=== PATIENT | male | born 1935 | race African-American/Black ===

== ENCOUNTER 2017-03-09 14:12 | Outpatient (CLI) | payer MEDICARE, BC ==
[2017-03-09 15:03] LABS: Hematocrit 40.4 % (42.0-52.0); Mean Platelet Volume 6.3 fL (7.4-10.4); Red Blood Cell (RBC) Count 4.33 mill/uL (4.70-6.10)
[2017-03-09 15:12] LABS: Prothrombin Time 13.3 SEC (12.0-14.7)
[2017-03-09 15:13] LABS: PTT 30.7 SEC (22.9-36.1)
--- NOTE | 2017-03-09 15:19 | RAD ---
TWO VIEW CHEST: History: Pre-operative evaluation. Comparison: 09-19-16 FINDINGS: Heart is mildly enlarged. Mild vascular engorgement appears stable from prior exam. No new infiltrate . A calcified nodule in the left lung base is stable. Osseous structures are unremarkable. IMPRESSION: Mild cardiomegaly. Stable chest findings. POS: [facility]
[2017-03-09 15:26] LABS: Anion Gap 8 mmol/L (10-20); BUN (Urea Nitrogen) 18 mg/dL (8.4-25.7); Calc. Creatinine Clearance 0 mL/min (70-130); Carbon Dioxide 29 mmol/L (23-31); Chloride 106 mmol/L (98-107); Estimated GFR-MDRD 84
== END 2017-03-09 14:13 | disposition home or self-care (01) ==
LOC: LABBT 14:12
PROVIDERS: ATTEND Urology
DX: Z01.818 Encounter for other preprocedural examination (principal); N47.1 Phimosis; N30.01 Acute cystitis with hematuria; R31.29 Other microscopic hematuria
CPT/HCPCS: 71020; 80048; 85027; 85610; 85730; 93005; 93010

== ENCOUNTER 2017-03-15 14:59 | Outpatient (CLI) | payer MEDICARE, BC ==
[~2017-03-15 14:59] MED LIST: Iopamidol 250 51% 100 ML VIAL FS ONE
--- NOTE | 2017-03-15 19:21 | CT ---
PRE AND POSTCONTRAST ENHANCED CT IMAGES ABDOMEN AND PELVIS 03/15/17 HISTORY: Microhematuria, difficulty urinating. Pre and postcontrast enhanced CT images of the abdomen and pelvis is obtained before and after admini stration of IV contrast. The lung bases are unremarkable. There does appear to be some areas of right pleural based calcification possibly due to previous pneumothorax. No other pulmonary parenchymal le prince seen. A small granuloma is seen in the left lower lobe. The liver and spleen demonstrate no obvious evidence of abnormalities. The gallbladder is contracted. Adrenal glands are unremarkable. Cortical cyst seen in the left kidney. No evidence of renal parench ymal calcifications or masses seen. No evidence of hydronephrosis seen. The ureters are decompressed. There does appear to be some moderate lateral wall thickening. Bladder pathology cannot be excluded. Incidentally noted sigmoid and descending colonic diverticulosis is also present. IMPRESSION: Some bladder wall thickening. Differential diagnosis includes cystitis versus malignancy. Correlate w ith direct visualization. There is also vacuum disc changes seen at the L5-S1 level. POS: OFF
== END 2017-03-15 15:00 | disposition home or self-care (01) ==
LOC: CT 14:59
PROVIDERS: ATTEND Urology
DX: R31.9 Hematuria, unspecified (principal)
CPT/HCPCS: 74178

== ENCOUNTER 2017-03-16 06:27 | Day surgery (SDC) | payer MEDICARE, BC ==
[2017-03-15 14:53] VITALS: BMI 32.1
[2017-03-16] MEDS ORDERED: Levofloxacin 500 mg/D5W 100 ml Premix Bag ONE (07:09)
[2017-03-16] MEDS ORDERED: CEFAZOLIN/Water 2 GM/20 ML SYRINGE ONE (07:09)
[2017-03-16] MEDS ORDERED: Bacitracin Zinc Ointment 30 gm TUBE ONE ×2 (09:11→12:38)
[2017-03-16] MEDS ORDERED: Iothalamate Meglumine 60% 50 ML VIAL FS ONE (09:11)
[2017-03-16] MEDS ORDERED: Bupivacaine 0.25% HCL 30 ML VIAL ONE (09:11)
[2017-03-16] MEDS ORDERED: Fentanyl 100 MCG/2 ML VIAL ONE (09:12)
[2017-03-16] MEDS ORDERED: Promethazine HCl 25 MG/ML VIAL ONE (09:12)
--- NOTE | 2017-03-16 11:37 | OP ---
DATE OF PROCEDURE: 03/16/2017 PREOPERATIVE DIAGNOSES: 1. An 81-year-old male with history of benign prostatic hyperplasia, with severe phimosis. 2. Recent urinary tract infection, serna sensitive Escherichia coli. POSTOPERATIVE DIAGNOSES: 1. An 81-year-old male with history of benign prostatic hyperplasia, with severe phimosis. 2. Recent urinary tract infection, pansensitive Escherichia coli. PROCEDURES: Flexible cystoscopy, bladder wash, circumcision. SURGEON: Leigh Oreilly D.O. ANESTHESIA: General. COMPLICATIONS: None apparent. DISPOSITION: To the recovery room in stable condition. SPECIMENS: 1. Bladder wash for urine cytology. 2. Foreskin for permanent specimen. EBL: Minimal. IV FLUIDS: Approximately 1 liter. Intraoperative findings: Moderate BPH bilobar. Bladder grossly unremarkable. Severe phimosis, with dense adherence of the lopez, glans INDICATIONS FOR THE PROCEDURE AND HISTORY: Mr. Dumas is an 81-year-old male with history of dementia, BPH, referred by Dr. Chavez urgently as he had dysuria , phimosis, unable to retract. The patient is not in urinary retention with no significant postvoid residual, known to have history of BPH on Flomax. Urinalysis culture demonstrated pansensitive E. coli which has been treated by primary care physician. On exam, he had a tight phimosis in which I am unable to retract the foreskin. He presents today for circumcision, flexible cystoscopy for history of microscopic hematuria. CT of the abdomen and pelvis was obtained which demonstrated incidental bladder wall thickening, per my review, prostate volume approximately 55 grams, left renal cyst. There is no gross evidence of intraluminal bladder mass, no evidence of hydronephrosis. The patient's family has been informed regarding CT findings, risks and complications of the procedure was reviewed with him in detail including, but not limited to; bleeding, pain, infection, chronic pain, penile curvature, meatal stenosis, injury to adjacent structures. All questions were answered to their satisfaction and he desired to proceed. DESCRIPTION OF THE PROCEDURE: After an informed consent is signed, the patient is taken to the operating room, placed in supine position with the genital and the abdomen area prepped and draped in the usual surgical sterile fashion. As previously noted, there is a tight phimosis with some thickening of the foreskin consistent with chronic inflammation. I was unable to retract the foreskin; therefore, we initially performed a dorsal slit. Care was taken to avoid inadvertently injuring the glans. A straight Deja clamp was placed dorsally and held pressure and this was opened with Metzenbaum scissors. This was opened to the level of the coronal sulcus. At the level of the coronal sulcus, there was densely adherent inflammatory reaction of his prepuce especially at the ventral side. We took the incision down to the level of the glans and we circumferentially incised the foreskin to the level of the coronal sulcus ventrally as well. At the ventral surface, the plane of the coronal sulcus was somewhat obliterated due to chronic inflammation. There were no obvious lesions concerning for occult malignancy. The ring of foreskin was then incised with electrocautery. Good hemostasis was obtained throughout the dartos fascia. Using 3-0 chromic and an interrupted stitch, we reapproximated the skin. Good hemostasis again was noted. At this time, we proceeded to perform a flexible cystoscopy. There was no evidence of urethral stricture. The prostatic urethra demonstrated bilobar hyperplasia moderately obstructing with no significant intravesical median lobe. The superior verumontanum length was approximately 4-5 cm. Upon entering the bladder, clear urine was noted. There were no suspicious lesions for malignancy, no extrinsic mass defects, no bladder calculi. No significant trabeculation was noted. The ureteral orifices approximately 1 cm from the bladder neck. Urine barbotage and cytology was obtained. The bladder was subsequently emptied and completed with 16 Italian [place], subsequently removed. Sterile pressure dressing is applied and he tolerated the procedure well. He is discharged with ciprofloxacin for 5 days, [place], [place] 5/325, #40. MTDD
[2017-03-16] MEDS ORDERED: Lidocaine 1% PF 5 ML VIAL ONE (15:22)
[2017-03-16] MEDS ORDERED: PHENYLEPHRINE-NS 100 MCG/ML 10 ML SYRINGE ONE (15:22)
[2017-03-16] MEDS ORDERED: Propofol 200 MG/20 ML VIAL ONE (15:22)
[2017-03-16] MEDS ORDERED: Ondansetron HCl/PF 4 MG/2 ML Vial ONE (15:22)
== END 2017-03-16 12:55 | disposition home or self-care (01) ==
LOC: SDC 06:27
PROVIDERS: ATTEND Urology
PROC: 0VTTXZZ Resection of Prepuce, External Approach (ICD-10-PCS; principal; 2017-03-16)
PROC: 0TJB8ZZ Inspection of Bladder, Via Natural or Artificial Opening Endoscopic (ICD-10-PCS; 2017-03-16)
DX: N47.1 Phimosis (principal); N30.01 Acute cystitis with hematuria; F03.90 Unspecified dementia, unspecified severity, without behavioral disturbance, psychotic disturbance, mood disturbance, and anxiety; E78.5 Hyperlipidemia, unspecified; N40.0 Benign prostatic hyperplasia without lower urinary tract symptoms; I86.8 Varicose veins of other specified sites; K21.9 Gastro-esophageal reflux disease without esophagitis; E66.9 Obesity, unspecified; Z68.32 Body mass index [BMI] 32.0-32.9, adult; Z79.2 Long term (current) use of antibiotics; Z86.718 Personal history of other venous thrombosis and embolism; Z79.899 Other long term (current) drug therapy
CPT/HCPCS: 88112; 88304; J1956; J2001; J2405; J2550; J2704; J3010; Q9961; S0020

== ENCOUNTER 2017-10-17 08:53 | Outpatient (CLI) | payer MEDICARE, BC ==
[2017-10-17] MEDS ORDERED: ISOVUE-370 76%-LOCM 1 ML ONE (13:01)
== END 2017-10-17 08:54 | disposition home or self-care (01) ==
LOC: BICCT 08:53
PROVIDERS: ATTEND Urology
DX: R31.29 Other microscopic hematuria (principal); N47.1 Phimosis; K76.89 Other specified diseases of liver; N28.1 Cyst of kidney, acquired; K57.30 Diverticulosis of large intestine without perforation or abscess without bleeding; K44.9 Diaphragmatic hernia without obstruction or gangrene; K80.20 Calculus of gallbladder without cholecystitis without obstruction; J98.4 Other disorders of lung; Z87.440 Personal history of urinary (tract) infections
CPT/HCPCS: 74178

== ENCOUNTER 2020-03-26 17:50 | Emergency (ER) | payer MEDICARE, BC ==
[2020-03-26 18:29] LABS: #Basophils 0.1 thou/uL (0.0-0.2); #Eosinphils 0.1 thou/uL (0.0-0.7); #Lymphocytes 0.9 thou/uL (1.20-3.40); #Monocytes 0.4 thou/uL (0.11-0.59); %Basophils 0.8 % (0.0-1.0); %Eosinophils 1.8 % (0.0-10.0); %Lymphocytes 12.2 % (21.0-51.0); %Monocytes 5.9 % (0.0-10.0); %Neutrophils 79.4 % (42.0-75.0); Hemoglobin 13.1 g/dL (14.0-18.0); Mean Corpuscular HGB CONC 33.1 g/dL (32.0-36.0); Mean Corpuscular Hemoglobin 31.2 pg (27.0-31.0); Mean Corpuscular Volume 94.3 fL (78.0-98.0); Mean Platelet Volume 6.8 fL (7.4-10.4); Platelet Count 255 thou/uL (130-400); RBC Distribution Width 12.4 % (11.5-14.5); Red Blood Cell (RBC) Count 4.19 mill/uL (4.70-6.10); White Blood Cell (WBC) Count 7.5 thou/uL (4.8-10.8)
[2020-03-26 18:49] LABS: ALT (SGPT) 7 U/L (8-55); AST (SGOT) 11 U/L (5-34); Albumin 3.9 g/dL (3.4-4.8); Alkaline Phosphatase 101 U/L (40-110); Anion Gap 15 mmol/L (10-20); BUN (Urea Nitrogen) 17 mg/dL (8.4-25.7); Bilirubin, Total 0.4 mg/dL (0.2-1.2); Calc. Creatinine Clearance 0 mL/min (70-130); Calcium 8.7 mg/dL (7.8-10.44); Carbon Dioxide 26 mmol/L (23-31); Chloride 107 mmol/L (98-107); Globulin 3.7 g/dL (2.4-3.5); Glucose 115 mg/dL (83-110); Potassium 4.3 mmol/L (3.5-5.1); Protein, Total 7.6 g/dL (5.8-8.1); Sodium 144 mmol/L (136-145)
[2020-03-26 19:39] LABS: Bilirubin Negative (Negative); Blood, Urine Negative (Negative); Clarity Clear (Clear); Glucose, Urine (Dipstick) Normal (Negative); Ketone, Urine Negative (Negative); Leukocyte Negative Leu/uL (Negative); Nitrite Negative (Negative); Protein, Urine (Dipstick) 20 mg/dL (Neg-Trace); pH, Urine 5.5 (5.0-9.0)
--- NOTE | 2020-03-26 20:01 | RAD ---
CHEST ONE VIEW: 03/26/20 INDICATIONS: Hypotension. COMPARISON: Prior exam dated 12/20/14 and 03/09/17 and 04/16/17. FINDINGS: There are opacities involving both lower lobes possibly related to subsegmental volume loss. Pneumoni a is not entirely excluded. There are low lung volumes and accentuated cardiac silhouette. Mild cardi omegaly is felt to be present. There is mild suspected pulmonary vascular congestion. There are tiny bilateral pleural effusions suspected. No pneumothorax is evident. No acute osseous abnormality is ev ident. IMPRESSION: Mild cardiomegaly with mild suspected pulmonary vascular congestion and small bilateral pleural effus ions may reflect mild CHF. Linear and hazy opacities involving both lower lobes may reflect subsegmental volume loss due to hypo ventilation. If clinically indicated, repeat two view of the chest may be helpful for further evaluat ion. POS: [facility]
--- NOTE | 2020-03-29 16:28 | EKG ---
Test Reason : Blood Pressure : / mmHG Vent. Rate : 085 BPM Atrial Rate : 085 BPM P-R Int : 162 ms QRS Dur : 092 ms QT Int : 396 ms P-R-T Axes : 023 -26 -09 degrees QTc Int : 471 ms Normal sinus rhythm Minimal voltage criteria for LVH, may be normal variant Septal infarct , age undetermined Abnormal ECG Confirmed by ROSHAN Eagle, YEHUDA ([id number]), editor greeting card JOANA MCCOLLUM ([id number]) on 03/29/2020 4:28:28 PM Referred By: Confirmed By:YEHUDA ISLAS M.D.
== END 2020-03-26 22:28 | disposition home or self-care (01) ==
LOC: ERS 17:50
DX: E86.0 Dehydration (principal); I10 Essential (primary) hypertension; Z86.718 Personal history of other venous thrombosis and embolism; Z79.899 Other long term (current) drug therapy
CPT/HCPCS: 36415; 51701; 71045; 80053; 81003; 83880; 84484; 85025; 93005

== ENCOUNTER 2020-05-05 15:47 | Inpatient (IN) | payer MEDICARE, BC ==
[~2020-05-05 15:47] MED LIST changes: -Iopamidol 250 51% 100 ML VIAL FS ONE; +Iopamidol-370 76% 500 ML 1 ML ONE
--- NOTE | 2020-05-05 16:39 | RAD ---
Exam: Chest one view HISTORY:Altered mental status. Patient stopped eating 2 days ago Comparison: 03/26/2020 FINDINGS: Cardiac silhouette:Cardiomegaly Aorta: Unremarkable Pulmonary vessels: Normal Costophrenic angles: Clear LUNGS: Extensive interstitial and alveolar opacities Pneumothorax: None Osseous abnormalities: None Findings: There appears to be gastric distention. Consider abdomen radiograph. IMPRESSION: 1. Congestive heart failure. Correlate for superimposed pneumonia 2. Gastric distention. Consider abdomen radiograph. Results study discussed with Dr. Navarro 05/05/2020 at 4:36 PM Code CR
[2020-05-05] MEDS ORDERED: Vancomycin 1 GM/200 ML BAG ONE (16:50)
[2020-05-05] MEDS ORDERED: cefTRIAXone\\ROCEPHIN 2 GM VIAL ONE (16:50)
[2020-05-05 17:24] LABS: #Eosinphils 0.1 thou/uL (0.0-0.7); #Lymphocytes 0.5 thou/uL (1.20-3.40); #Monocytes 0.5 thou/uL (0.11-0.59); #Neutrophils 4.7 thou/uL (1.40-6.50); %Basophils 0.5 % (0.0-1.0); %Eosinophils 1.1 % (0.0-10.0); %Lymphocytes 7.9 % (21.0-51.0); %Monocytes 9.1 % (0.0-10.0); %Neutrophils 81.5 % (42.0-75.0); Hemoglobin 12.8 g/dL (14.0-18.0); Mean Corpuscular HGB CONC 34.8 g/dL (32.0-36.0); Mean Corpuscular Hemoglobin 31.2 pg (27.0-31.0); Mean Corpuscular Volume 89.7 fL (78.0-98.0); Mean Platelet Volume 7.6 fL (7.4-10.4); Platelet Count 182 thou/uL (130-400); RBC Distribution Width 12.3 % (11.5-14.5); Red Blood Cell (RBC) Count 4.11 mill/uL (4.70-6.10); White Blood Cell (WBC) Count 5.8 thou/uL (4.8-10.8)
[2020-05-05 17:41] LABS: SARS-CoV-2 NAA Rapid Test DETECTED (NotDetected)
--- NOTE | 2020-05-05 17:50 | RAD ---
Exam: 2 views abdomen HISTORY: Prominent air-filled loops of bowel noted on chest radiograph Comparison none FINDINGS: Supine and left lateral decubitus view of the abdomen are submitted for interpretation There are multiple loops of prominent air-filled:. There is a significant amount of fecal material in the right hemicolon. There do appear to be decompressed air-filled loops of small bowel, scattered throughout the abdomen. No obvious pneumoperitoneum on the left T wrist radiograph. Small triangular focus of air underneath the hepatic silhouette is noted. Significance is uncertain. Better interrogation with an abdomen pelvis CT utilizing IV and possible oral contrast is recommended. IMPRESSION: Prominent air-filled loops of colon. Scattered fecal material. Questionable nonspecific f ocus of air in the right upper quadrant, only appreciated on the left decubitus radiograph. Additional imaging with CT is recommended.
[2020-05-05] MEDS ORDERED: Dexamethasone 10 MG/ML VIAL ONE (17:57)
[2020-05-05 17:58] LABS: ALT (SGPT) 18 U/L (8-55); AST (SGOT) 40 U/L (5-34); Albumin 3.2 g/dL (3.4-4.8); Alkaline Phosphatase 93 U/L (40-110); Anion Gap 17 mmol/L (10-20); BUN (Urea Nitrogen) 24 mg/dL (8.4-25.7); Bilirubin, Total 0.6 mg/dL (0.2-1.2); Calc. Creatinine Clearance 0 mL/min (70-130); Calcium 7.9 mg/dL (7.8-10.44); Carbon Dioxide 21 mmol/L (23-31); Chloride 106 mmol/L (98-107); Globulin 3.6 g/dL (2.4-3.5); Glucose 108 mg/dL (83-110); Protein, Total 6.8 g/dL (5.8-8.1); Sodium 141 mmol/L (136-145)
[2020-05-05 18:07] LABS: Potassium 2.7 mmol/L (3.5-5.1)
[2020-05-05 18:34] LABS: Bacteria/HPF None Seen HPF (None Seen); Bilirubin Negative (Negative); Blood, Urine Negative (Negative); Clarity Clear (Clear); Glucose, Urine (Dipstick) Normal (Negative); Ketone, Urine Negative (Negative); Leukocyte Negative Leu/uL (Negative); Nitrite Negative (Negative); Protein, Urine (Dipstick) 50 mg/dL (Neg-Trace); RBC/HPF None Seen HPF (0-3); Specific Gravity, Urine 1.019 (1.002-1.036); Squamous Epithelial 0-3 HPF (0-3); WBC/HPF 0-3 HPF (0-3); pH, Urine 5.5 (5.0-9.0)
[2020-05-05] MEDS ORDERED: Potassium Chloride 40 MEQ in Sodium Chloride 0.9% 500 ML IVPB ONE (18:45)
--- NOTE | 2020-05-05 18:49 | CT ---
CT HEAD WITHOUT CONTRAST: Indications: Mental status change. Comparison: 04-16-2017 FINDINGS: Mild to moderate cortical atrophy. Moderately severe chronic ischemic white matter changes, similar t o the prior exam. No evidence of mass or hemorrhage. No evidence of acute cortical infarct. No acute interval change identified. Paranasal sinuses and mastoids are clear. IMPRESSION: Chronic changes as described. No acute process identified. POS: [facility]
--- NOTE | 2020-05-05 20:23 | CT ---
CT ABDOMEN AND PELVIS WITH IV CONTRAST: Indications: Abdominal distension. Comparison: 10-17-17 FINDINGS: Images through the lung bases show diffuse ground glass opacities in the visualized lower lobes. Covi d pneumonia should be excluded. Two small nodules in the right middle lobe have been previously described and are stable. Hepatic cystic lesions are stable. Spleen and pancreas unremarkable. Renal cystic lesions are stable. No hydronephrosis. Small bowel loops normal caliber. Moderate volume stool throughout the colon. Aor ta normal caliber with calcification. Urinary bladder shows mild urinary bladder wall thickening. Mild prostatic hypertrophy. Osseous struc tures unremarkable with degenerative spine changes. IMPRESSION: 1. Images through the lung bases show diffuse bilateral ground glass infiltrates in the visualiz ed lower lobes. Rule out Covid pneumonia. 2. No acute intraabdominal process. Moderate to large volume stool in the colon. Other findings as described above appear stable. POS: [facility]
[2020-05-05] MEDS ORDERED: Ondansetron PF 4 MG/2 ML Vial IVP PRN (23:00)
[2020-05-05] MEDS ORDERED: Sodium Chloride 0.9% 1,000 ML IV SCH (23:00)
[2020-05-05] MEDS ORDERED: Acetaminophen 325 MG TAB PO PRN (23:00)
[2020-05-05] MEDS ORDERED: Ondansetron ODT 4 MG TAB SL PRN (23:00)
[2020-05-06] MEDS ORDERED: Ondansetron ODT 4 MG TAB PO PRN (08:13)
[2020-05-06] MEDS ORDERED: Acetaminophen 325 MG TAB PO PRN (08:13)
[2020-05-06] MEDS ORDERED: REMDESIVIR (EUA) 200 MG in Sodium Chloride 0.9% 250 ML 210 ML IV SCH ×2 (08:30→11:00)
[2020-05-06] MEDS: Ascorbic Acid 500 mg Chewable Tablet PO SCH ×2 (08:45→10:21)
[2020-05-06] MEDS: Tamsulosin HCl 0.4 MG CAP PO SCH ×2 (08:45→10:21)
[2020-05-06] MEDS: Zinc Sulfate 220 MG CAP PO SCH ×2 (08:45→10:21)
[2020-05-06] MEDS: Enoxaparin Sodium 40 MG/0.4 ML SYRINGE SC SCH (08:45)
[2020-05-06] MEDS: Dexamethasone 6 MG in Sodium Chloride 0.9% 50 ML IVPB SCH (09:17)
--- NOTE | 2020-05-06 09:18 | HP ---
PRIMARY CARE PROVIDER: Charles Chavez MD HISTORY OF PRESENT ILLNESS: The patient referred to the Hospitalist Service from [facility]. The patient had had a cough for two or three days, presented to the emergency room with less responsive. EMS said his temperature was 95.1. Sat was 92 on arrival. No history obtainable other than that. REVIEW OF SYSTEMS: The patient is unable to give any history. He is demented and answers no question appropriately. I have spoken with the daughter, Josep Dumas, who relates that he was really doing well two days ago. PAST MEDICAL HISTORY: Pertinent for Alzheimer's dementia and benign prostatic hypertrophy. CURRENT MEDICATIONS: 1. Donepezil 10 mg a day. 2. Namenda 10 mg twice a day. 3. Flomax 0.4 mg a day. ALLERGIES: NO KNOWN MEDICAL ALLERGIES. FAMILY HISTORY: Unobtainable at the present time. SOCIAL HISTORY: Apparently lives with family. No tobacco. No alcohol. Spoke with Josep Dumas. He is a full code, full resuscitation. As mentioned before, review of systems is totally unobtainable from the patient. PHYSICAL EXAMINATION: GENERAL: He is arousable, mumbles. No specific response. VITAL SIGNS: He is on high-flow O2 with 94% to 95% sat. Blood pressure 147/62, pulse 76, and temperature 98.1. HEAD, EYES, EARS, NOSE, AND THROAT: Revealed pupils equal. Sclerae white. Tympanic membranes are clear. Nose is clear. Oral mucous membranes are dry. NECK: No jugular venous distention, adenopathy, or thyromegaly. CHEST: Clear to percussion. Fine rales in all lung rubio. HEART: Had a regular rate and rhythm. First and second heart sounds are clear. There are no appreciated murmurs or gallops. ABDOMEN: Soft. Bowel sounds are normal. There is no hepatosplenomegaly. No mass. No rebound. EXTREMITIES: Reveal no cyanosis, clubbing, or edema. PULSES: Carotid, radial, femoral, and dorsalis pedis pulses intact. SKIN: Warm and dry without bruises or rash. HEME/LYMPH: No tender or swollen lymph nodes in axilla, inguinal, cervical area. NEUROLOGICAL: Cranial nerves 2 through 12 grossly intact. Moves all extremities. IMAGING STUDIES: Chest x-ray, bilateral infiltrates consistent with COVID-19, reviewed by me. LABORATORY DATA: Sodium 141, potassium 2.7, chloride 106, CO2 of 21, BUN 24, creatinine 1.00, lactic acid 1.4, bilirubin 0.6. BNP 32. Serology, COVID-19 positive. Hematology; white count 5.8, hemoglobin 12.8, platelet count 182,000 with high neutrophils, low lymphocytes consistent with COVID. Inflammatory markers have not been drawn. EKG; rate 70, atrial fibrillation, LVH, marked artifact. We will review. ADMITTING DIAGNOSES: 1. COVID pneumonia. 2. Acute respiratory failure with hypoxemia. 3. Alzheimer's dementia. 4. Hypokalemia. 5. Atrial fibrillation. I have spoken with the family. He will be full code. He will be started on Decadron, continued on high-flow O2. Remdesivir will be started. Vitamin C and zinc will be added. Job ID: [id number]
[2020-05-06] MEDS: Donepezil HCl 10 MG TAB PO SCH (20:34)
[2020-05-06] MEDS ORDERED: Donepezil HCl 10 MG TAB PO SCH (21:00)
[2020-05-07 06:19] LABS: #Basophils 0.1 thou/uL (0.0-0.2); #Lymphocytes 0.4 thou/uL (1.20-3.40); #Monocytes 0.7 thou/uL (0.11-0.59); #Neutrophils 9.4 thou/uL (1.40-6.50); %Basophils 1.3 % (0.0-1.0); %Eosinophils 0.3 % (0.0-10.0); %Lymphocytes 4.1 % (21.0-51.0); %Monocytes 6.1 % (0.0-10.0); %Neutrophils 88.2 % (42.0-75.0); Hemoglobin 13.6 g/dL (14.0-18.0); Mean Corpuscular HGB CONC 34.5 g/dL (32.0-36.0); Mean Corpuscular Hemoglobin 31.5 pg (27.0-31.0); Mean Corpuscular Volume 91.4 fL (78.0-98.0); Mean Platelet Volume 7.5 fL (7.4-10.4); Platelet Count 175 thou/uL (130-400); RBC Distribution Width 12.5 % (11.5-14.5); Red Blood Cell (RBC) Count 4.32 mill/uL (4.70-6.10); White Blood Cell (WBC) Count 10.7 thou/uL (4.8-10.8)
[2020-05-07 06:41] LABS: Anion Gap 16 mmol/L (10-20); BUN (Urea Nitrogen) 17 mg/dL (8.4-25.7); Calc. Creatinine Clearance 95 mL/min (70-130); Calcium 7.9 mg/dL (7.8-10.44); Carbon Dioxide 22 mmol/L (23-31); Chloride 114 mmol/L (98-107); Glucose 118 mg/dL (83-110); Sodium 149 mmol/L (136-145)
[2020-05-07 06:51] LABS: Potassium 2.8 mmol/L (3.5-5.1)
[2020-05-07] MEDS: Ascorbic Acid 500 mg Chewable Tablet PO SCH ×2 (08:44→12:59)
[2020-05-07] MEDS: Zinc Sulfate 220 MG CAP PO SCH ×2 (08:44→12:59)
[2020-05-07] MEDS: Tamsulosin HCl 0.4 MG CAP PO SCH ×2 (08:44→12:59)
[2020-05-07] MEDS: Enoxaparin Sodium 40 MG/0.4 ML SYRINGE SC SCH (08:45)
[2020-05-07] MEDS: Dexamethasone 6 MG in Sodium Chloride 0.9% 50 ML IVPB SCH (10:00)
[2020-05-07] MEDS ORDERED: REMDESIVIR (EUA) 100 MG in Sodium Chloride 0.9% 250 ML 230 ML IV SCH (12:00)
--- NOTE | 2020-05-07 12:16 | PDOC.HOSPP ---
- Subjective Encounter Date: 05/07/20 Encounter Time: 12:15 Subjective: confused - Objective Vital Signs & Weight: Vital Signs (12 hours) Temp Pulse Resp BP BP Pulse Ox 05/07/20 11:34 62 20 165/90 H 86 L 05/07/20 07:56 97.3 F L 63 20 148/77 H 85 L 05/07/20 04:00 98.2 F 66 20 157/87 H 90 L Weight Admit Weight 224 lb 1.92 oz Weight 224 lb 2 oz I&O: 05/06/20 05/07/20 05/08/20 06:59 06:59 06:59 Intake Total 800 450 Balance 800 450 Result Diagrams: 05/07/20 06:00 05/07/20 06:00 Hospitalist ROS - Medication Medications: Active Medications Generic Name Dose Route Start Last Admin Trade Name Freq PRN Reason Stop Dose Admin Ascorbic Acid 1,000 mg 05/06/20 09:00 05/07/20 08:44 Ascorbic Acid 500 Mg Chewable Tablet PO 1,000 mg DAILY DONNA Administration Donepezil HCl 10 mg 05/06/20 21:00 05/06/20 20:34 Donepezil Hcl 10 Mg Tab PO 10 mg HS DONNA Administration Enoxaparin Sodium 40 mg 05/06/20 09:00 05/07/20 08:45 Enoxaparin Sodium 40 Mg/0.4 Ml Syringe SC 40 mg 0900 DONNA Administration Dexamethasone 6 mg/ Sodium 50.6 mls @ 100 mls/hr 05/06/20 09:00 05/06/20 09:17 Chloride IVPB 50.6 mls DAILY DONNA Administration Memantine 10 mg 05/06/20 09:00 05/07/20 08:45 Memantine Hcl 10 Mg Tab PO 10 mg BID DONNA Administration Pantoprazole Sodium 40 mg 05/06/20 09:00 05/07/20 08:44 Pantoprazole 40 Mg Tab PO 40 mg DAILY DONNA Administration Sodium Chloride 10 ml 05/06/20 09:00 05/07/20 08:45 Flush - Normal Saline 10 Ml Syringe IVF 10 ml Q12HR DONNA Administration Tamsulosin HCl 0.4 mg 05/06/20 09:00 05/07/20 08:44 Tamsulosin Hcl 0.4 Mg Cap PO 0.4 mg DAILY DONNA Administration Zinc Sulfate 220 mg 05/06/20 09:00 05/07/20 08:44 Zinc Sulfate 220 Mg Cap PO 220 mg DAILY DONNA Administration Hospitalist Exam Vitals: Vital Signs (12 hours) Temp Pulse Resp BP BP Pulse Ox 05/07/20 11:34 62 20 165/90 H 86 L 05/07/20 07:56 97.3 F L 63 20 148/77 H 85 L 05/07/20 04:00 98.2 F 66 20 157/87 H 90 L Weight Admit Weight 224 lb 1.92 oz Weight 224 lb 2 oz Neck: no JVD Heart: RRR, no murmur Respiratory - other findings: post rales, rhonchi Gastrointestinal: soft, normal bowel sounds Extremities: no edema Hosp A/P (1) Pneumonia due to COVID-19 virus Code(s): U07.1 - COVID-19; J12.82 - PNEUMONIA DUE TO CORONAVIRUS DISEASE 2019 Status: Acute (2) Acute respiratory failure with hypoxemia Code(s): J96.01 - ACUTE RESPIRATORY FAILURE WITH HYPOXIA Status: Acute (3) Alzheimer disease Code(s): G30.9 - ALZHEIMER'S DISEASE, UNSPECIFIED; F02.80 - DEMENTIA IN OTH DISEASES CLASSD ELSWHR W/O BEHAVRL DISTURB Status: Chronic - Plan requiring 6 Li per NC O2 cont iv steroids cont iv remdesivir inflammatory markrs very high, therapeutic dose lovenox
[2020-05-07] MEDS: REMDESIVIR (EUA) 100 MG in Sodium Chloride 0.9% 250 ML 230 ML IV SCH (13:16)
[2020-05-07] MEDS ORDERED: Potassium Phosphate 30 MMOL in Sodium Chloride 0.9% 500 ML IVPB SCH (15:30)
[2020-05-07] MEDS: Donepezil HCl 10 MG TAB PO SCH (19:55)
[2020-05-07] MEDS: Enoxaparin Sodium 100 MG/ML SYRINGE SC SCH (19:55)
--- NOTE | 2020-05-08 09:52 | PDOC.HOSPP ---
- Subjective Encounter Date: 05/08/20 Encounter Time: 09:51 Subjective: no appropriate responce - Objective Vital Signs & Weight: Vital Signs (12 hours) Temp Pulse Resp BP BP Pulse Ox 05/08/20 08:10 97.5 F L 70 20 165/116 H 90 L 05/08/20 04:00 97.6 F 84 20 184/97 H 94 L 05/07/20 23:28 97.5 F L 72 20 181/98 H 94 L Weight Admit Weight 224 lb 1.92 oz Weight 224 lb 2 oz I&O: 05/07/20 05/08/20 05/09/20 06:59 06:59 06:59 Intake Total 450 1200 Balance 450 1200 Result Diagrams: 05/07/20 06:00 05/07/20 06:00 Hospitalist ROS - Medication Medications: Active Medications Generic Name Dose Route Start Last Admin Trade Name Freq PRN Reason Stop Dose Admin Ascorbic Acid 1,000 mg 05/06/20 09:00 05/07/20 12:59 Ascorbic Acid 500 Mg Chewable Tablet PO Not Given DAILY DONNA Donepezil HCl 10 mg 05/06/20 21:00 05/07/20 19:55 Donepezil Hcl 10 Mg Tab PO Not Given HS DONNA Enoxaparin Sodium 100 mg 05/07/20 21:00 05/07/20 19:55 Enoxaparin Sodium 100 Mg/Ml Syringe SC 100 mg 0900,2100 DONNA Administration Dexamethasone 6 mg/ Sodium 50.6 mls @ 100 mls/hr 05/06/20 09:00 05/07/20 10:00 Chloride IVPB 50.6 mls DAILY DONNA Administration Remdesivir 100 mg/ Sodium 250 mls @ 250 mls/hr 05/07/20 11:00 05/07/20 13:16 Chloride IV 05/10/20 11:59 250 mls 1100 DONNA Administration Memantine 10 mg 05/06/20 09:00 05/07/20 19:55 Memantine Hcl 10 Mg Tab PO Not Given BID DONNA Pantoprazole Sodium 40 mg 05/06/20 09:00 05/07/20 12:59 Pantoprazole 40 Mg Tab PO Not Given DAILY DONNA Sodium Chloride 10 ml 05/06/20 09:00 05/07/20 19:55 Flush - Normal Saline 10 Ml Syringe IVF 10 ml Q12HR DONNA Administration Tamsulosin HCl 0.4 mg 05/06/20 09:00 05/07/20 12:59 Tamsulosin Hcl 0.4 Mg Cap PO Not Given DAILY DONNA Zinc Sulfate 220 mg 05/06/20 09:00 05/07/20 12:59 Zinc Sulfate 220 Mg Cap PO Not Given DAILY [facility] Hospitalist Exam Vitals: Vital Signs (12 hours) Temp Pulse Resp BP BP Pulse Ox 05/08/20 08:10 97.5 F L 70 20 165/116 H 90 L 05/08/20 04:00 97.6 F 84 20 184/97 H 94 L 05/07/20 23:28 97.5 F L 72 20 181/98 H 94 L Weight Admit Weight 224 lb 1.92 oz Weight 224 lb 2 oz Neck: no JVD Heart: RRR, no murmur Respiratory - other findings: fine rales diffusely Gastrointestinal: soft, non-distended, normal bowel sounds Extremities: no edema Hosp A/P (1) Pneumonia due to COVID-19 virus Code(s): U07.1 - COVID-19; J12.82 - PNEUMONIA DUE TO CORONAVIRUS DISEASE 2019 Status: Acute (2) Acute respiratory failure with hypoxemia Code(s): J96.01 - ACUTE RESPIRATORY FAILURE WITH HYPOXIA Status: Acute (3) Alzheimer disease Code(s): G30.9 - ALZHEIMER'S DISEASE, UNSPECIFIED; F02.80 - DEMENTIA IN OTH DISEASES CLASSD ELSWHR W/O BEHAVRL DISTURB Status: Chronic - Plan requiring 6 Li per NC O2 cont iv steroids cont iv remdesivir NGT for didi/nutrition CXR, D-dimer, CRP, BMP
[2020-05-08] MEDS: Dexamethasone 6 MG in Sodium Chloride 0.9% 50 ML IVPB SCH (10:58)
[2020-05-08] MEDS: Ascorbic Acid 500 mg Chewable Tablet PO SCH (10:58)
[2020-05-08] MEDS: Tamsulosin HCl 0.4 MG CAP PO SCH (11:01)
[2020-05-08] MEDS: Zinc Sulfate 220 MG CAP PO SCH (11:02)
[2020-05-08] MEDS: REMDESIVIR (EUA) 100 MG in Sodium Chloride 0.9% 250 ML 230 ML IV SCH ×2 (11:02→11:45)
[2020-05-08 11:39] LABS: Anion Gap 16 mmol/L (10-20); BUN (Urea Nitrogen) 20 mg/dL (8.4-25.7); Calc. Creatinine Clearance 83 mL/min (70-130); Carbon Dioxide 21 mmol/L (23-31); Chloride 117 mmol/L (98-107); Glucose 90 mg/dL (83-110); Potassium 3.4 mmol/L (3.5-5.1); Sodium 151 mmol/L (136-145)
[2020-05-08] MEDS: Enalaprilat Dihydrate 1.25 MG/ML VIAL SLOW IVP SCH ×2 (13:00→19:00)
[2020-05-08] MEDS: Enoxaparin Sodium 100 MG/ML SYRINGE SC SCH ×2 (13:47→20:45)
--- NOTE | 2020-05-08 15:53 | PDOC.BPN ---
- Brief Progress Note Encounter Date: 05/08/20 Encounter Time: 15:52 started iv vasotec for HTN
[2020-05-08] MEDS ORDERED: D5 1/4 NS w/20 mEq KCL 1,000 ML IV SCH (16:15)
--- NOTE | 2020-05-08 16:16 | PDOC.BPN ---
- Brief Progress Note Encounter Date: 05/08/20 Encounter Time: 16:11 issues 1. covid PNA on high flow O2, remdesivir, decadron, 2. HTN- started iv vasotec , 3. hypernatremia- started D5 1/4 NS + KCL. 4. needs nutrition- NGT no go due to high flow, OGT?
[2020-05-08] MEDS: Donepezil HCl 10 MG TAB PO SCH (20:45)
[2020-05-09] MEDS: Enalaprilat Dihydrate 1.25 MG/ML VIAL SLOW IVP SCH ×4 (00:28→17:02)
[2020-05-09 07:52] LABS: Eosinophils 1 % (0-10); Hemoglobin 15.1 g/dL (14.0-18.0); Lymphocytes 2 % (21-51); MDiff Complete? YES; Mean Corpuscular HGB CONC 34.2 g/dL (32.0-36.0); Mean Corpuscular Hemoglobin 31.7 pg (27.0-31.0); Mean Corpuscular Volume 92.8 fL (78.0-98.0); Mean Platelet Volume 9.3 fL (7.4-10.4); Monocytes 3 % (0-10); Neutrophil 94 % (42-75); Platelet Count 133 thou/uL (130-400); Platelet Morphology Comment Appears Adequate; RBC Distribution Width 13.9 % (11.5-14.5); Red Blood Cell (RBC) Count 4.75 mill/uL (4.70-6.10); White Blood Cell (WBC) Count 8.4 thou/uL (4.8-10.8)
[2020-05-09 10:15] LABS: Albumin 2.6 g/dL (3.4-4.8)
[2020-05-09 10:16] LABS: Chloride 117 mmol/L (98-107); Potassium 3.7 mmol/L (3.5-5.1); Sodium 146 mmol/L (136-145)
[2020-05-09 10:17] LABS: Calcium 7.8 mg/dL (7.8-10.44)
[2020-05-09 10:18] LABS: Glucose 186 mg/dL (83-110)
[2020-05-09 10:19] LABS: Anion Gap 14 mmol/L (10-20); Bilirubin, Total 0.9 mg/dL (0.2-1.2); Carbon Dioxide 19 mmol/L (23-31)
[2020-05-09 10:21] LABS: Alkaline Phosphatase 128 U/L (40-110); Calc. Creatinine Clearance 90 mL/min (70-130)
[2020-05-09 10:22] LABS: BUN (Urea Nitrogen) 21 mg/dL (8.4-25.7)
[2020-05-09 10:23] LABS: AST (SGOT) 55 U/L (5-34); Bilirubin, Direct 0.3 mg/dL (0.1-0.3)
[2020-05-09 10:24] LABS: ALT (SGPT) 25 U/L (8-55)
[2020-05-09] MEDS: Ascorbic Acid 500 mg Chewable Tablet PO SCH (10:30)
[2020-05-09] MEDS: Dexamethasone 6 MG in Sodium Chloride 0.9% 50 ML IVPB SCH (10:30)
[2020-05-09] MEDS: Tamsulosin HCl 0.4 MG CAP PO SCH (10:32)
[2020-05-09] MEDS: Enoxaparin Sodium 100 MG/ML SYRINGE SC SCH ×2 (10:32→19:48)
[2020-05-09] MEDS: Zinc Sulfate 220 MG CAP PO SCH (10:32)
[2020-05-09] MEDS: REMDESIVIR (EUA) 100 MG in Sodium Chloride 0.9% 250 ML 230 ML IV SCH (12:40)
--- NOTE | 2020-05-09 15:58 | SPC ---
Exam: Leftupper extremity ultrasound guided PICC line HISTORY: TPN, IV antibiotics Exposure:0.7 minutes, 6004 mGy/sq cm FINDINGS: Lumen: Duallumen Trim length: 55 cm Distal tip:Right atrium Catheter flushes and aspirates without difficulty TECHNIQUE: Consent obtained to perform a left upper extremity PICC line with ultrasound guidance. Le ftarm was prepped and draped in a sterile fashion. 1% lidocaine, buffered with sodium bicarbonate was used for local anesthesia. Under ultrasound guidance, micropuncture needle was used to cannulate thebrachialvein. A 0.018 guidewire was advanced through the needle to level of the superior vena cava. Under fluoroscopy, the wire was further advanced into the inferior vena cava to document venous access. Wire was subsequently pulled back to theright atrium. Dual lumen flushes and aspirates without difficulty. Patient tolerated the procedure well. No immediate or postprocedure complications IMPRESSION: Successfulleftupper surgery PICC line placement with ultrasound guidance
--- NOTE | 2020-05-09 16:42 | PDOC.HOSPP ---
- Subjective Encounter Date: 05/09/20 Encounter Time: 09:30 - Objective Vital Signs & Weight: Vital Signs (12 hours) Temp Pulse Resp BP BP Pulse Ox 05/09/20 16:34 90 L 05/09/20 12:00 97.5 F L 86 20 158/92 H 91 L 05/09/20 08:00 97.5 F L 83 20 156/91 H 90 L 05/09/20 07:40 92 L Weight Admit Weight 224 lb 1.92 oz Weight 224 lb 2 oz I&O: 05/08/20 05/09/20 05/10/20 06:59 06:59 06:59 Intake Total 1200 Balance 1200 Result Diagrams: 05/09/20 05:46 05/09/20 09:52 Hospitalist ROS - Review of Systems Cardiovascular: denies: chest pain, palpitations, orthopnea, paroxysmal noc. dyspnea, edema, light headedness Gastrointestinal: denies: nausea, vomiting, abdominal pain, diarrhea, constipation, melena, hematochezia - Medication Medications: Active Medications Generic Name Dose Route Start Last Admin Trade Name Mateoq PRN Reason Stop Dose Admin Ascorbic Acid 1,000 mg 05/06/20 09:00 05/09/20 10:30 Ascorbic Acid 500 Mg Chewable Tablet PO Not Given DAILY DONNA Donepezil HCl 10 mg 05/06/20 21:00 05/08/20 20:45 Donepezil Hcl 10 Mg Tab PO Not Given HS DONNA Enalaprilat 1.25 mg 05/08/20 12:00 05/09/20 12:40 Enalaprilat Dihydrate 1.25 Mg/Ml Vial SLOW IVP 1.25 mg Q6HR DONNA Administration Enoxaparin Sodium 100 mg 05/07/20 21:00 05/09/20 10:32 Enoxaparin Sodium 100 Mg/Ml Syringe SC 100 mg 0900,2100 DONNA Administration Dexamethasone 6 mg/ Sodium 50.6 mls @ 100 mls/hr 05/06/20 09:00 05/09/20 10:30 Chloride IVPB Not Given DAILY DONNA Remdesivir 100 mg/ Sodium 250 mls @ 250 mls/hr 05/07/20 11:00 05/09/20 12:40 Chloride IV 05/10/20 11:59 250 mls 1100 DONNA Administration Potassium Chloride 20 meq/ 1,010 mls @ 125 mls/hr 05/08/20 19:45 05/09/20 12:40 Dextrose/Sodium Chloride IV 1,010 mls .Q8H5M DONNA Administration Memantine 10 mg 05/06/20 09:00 05/09/20 10:31 Memantine Hcl 10 Mg Tab PO Not Given BID DONNA Pantoprazole Sodium 40 mg 05/06/20 09:00 05/09/20 10:31 Pantoprazole 40 Mg Tab PO Not Given DAILY DONNA Sodium Chloride 10 ml 05/06/20 09:00 05/09/20 10:32 Flush - Normal Saline 10 Ml Syringe IVF 10 ml Q12HR DONNA Administration Tamsulosin HCl 0.4 mg 05/06/20 09:00 05/09/20 10:32 Tamsulosin Hcl 0.4 Mg Cap PO Not Given DAILY DONNA Zinc Sulfate 220 mg 05/06/20 09:00 05/09/20 10:32 Zinc Sulfate 220 Mg Cap PO Not Given DAILY [facility] Hospitalist Exam Vitals: Vital Signs (12 hours) Temp Pulse Resp BP BP Pulse Ox 05/09/20 16:34 90 L 05/09/20 12:00 97.5 F L 86 20 158/92 H 91 L 05/09/20 08:00 97.5 F L 83 20 156/91 H 90 L 05/09/20 07:40 92 L Weight Admit Weight 224 lb 1.92 oz Weight 224 lb 2 oz General Appearance: awake alert Eye: anicteric sclera ENT: normocephalic atraumatic Neck: supple Heart: RRR Respiratory: CTAB Gastrointestinal: soft Extremities: no edema Skin: no rashes Psychiatric: normal affect Hosp A/P - Plan - Assessment (1) Pneumonia due to COVID-19 virus Code(s): U07.1 - COVID-19; J12.82 - PNEUMONIA DUE TO CORONAVIRUS DISEASE 2019 Status: Acute (2) Acute respiratory failure with hypoxemia Code(s): J96.01 - ACUTE RESPIRATORY FAILURE WITH HYPOXIA Status: Acute (3) Alzheimer disease Code(s): G30.9 - ALZHEIMER'S DISEASE, UNSPECIFIED; F02.80 - DEMENTIA IN OTH DISEASES CLASSD ELSWHR W/O BEHAVRL DISTURB Status: Chronic - Plan On High flow oxygen cont iv steroids cont iv remdesivir TPN
[2020-05-09] MEDS: Donepezil HCl 10 MG TAB PO SCH (19:48)
[2020-05-10 00:08] LABS: Base Excess (BEa) -0.6 mEq/L (-2.0 to +3.0); CO2 Tension 30.8 mmHg (35.0-45.0); Calcium, Ionized (arterial) 1.05 mmol/L (1.12-1.30); Carboxyhemoglobin (COHb) 1.1 gm% (0.0-3.0); Hemoglobin (Hb) 14.3 g/dL (14.0-18.0); O2 Tension (PaO2), arterial 63.6 mmHg (> 60.0); Potassium - ABG Lab 2.86 mmol/L (3.70-5.30); pH, Arterial 7.47 (7.35-7.45)
[2020-05-10 00:12] LABS: Puncture Site RRA
[2020-05-10] MEDS: Enalaprilat Dihydrate 1.25 MG/ML VIAL SLOW IVP SCH ×4 (02:52→17:35)
[2020-05-10 05:12] LABS: ALT (SGPT) 26 U/L (8-55); AST (SGOT) 47 U/L (5-34); Albumin 2.6 g/dL (3.4-4.8); Alkaline Phosphatase 133 U/L (40-110); Anion Gap 18 mmol/L (10-20); BUN (Urea Nitrogen) 23 mg/dL (8.4-25.7); Bilirubin, Direct 0.3 mg/dL (0.1-0.3); Bilirubin, Total 0.8 mg/dL (0.2-1.2); Calc. Creatinine Clearance 84 mL/min (70-130); Calcium 7.6 mg/dL (7.8-10.44); Carbon Dioxide 19 mmol/L (23-31); Chloride 115 mmol/L (98-107); Glucose 160 mg/dL (83-110); Potassium 3.5 mmol/L (3.5-5.1); Protein, Total 6.3 g/dL (5.8-8.1); Sodium 148 mmol/L (136-145)
[2020-05-10 06:05] LABS: Band 10 % (5-11); Hemoglobin 13.8 g/dL (14.0-18.0); Lymphocytes 7 % (21-51); MDiff Complete? YES; Mean Corpuscular HGB CONC 32.6 g/dL (32.0-36.0); Mean Corpuscular Hemoglobin 29.9 pg (27.0-31.0); Mean Corpuscular Volume 91.7 fL (78.0-98.0); Mean Platelet Volume 8.6 fL (7.4-10.4); Monocytes 5 % (0-10); Neutrophil 78 % (42-75); Platelet Count 201 thou/uL (130-400); RBC Distribution Width 13.9 % (11.5-14.5); Red Blood Cell (RBC) Count 4.59 mill/uL (4.70-6.10)
[2020-05-10] MEDS: Ascorbic Acid 500 mg Chewable Tablet PO SCH (08:29)
[2020-05-10] MEDS: Zinc Sulfate 220 MG CAP PO SCH (08:29)
[2020-05-10] MEDS: Tamsulosin HCl 0.4 MG CAP PO SCH (08:29)
[2020-05-10] MEDS: Dexamethasone 6 MG in Sodium Chloride 0.9% 50 ML IVPB SCH (08:32)
[2020-05-10] MEDS: Enoxaparin Sodium 100 MG/ML SYRINGE SC SCH ×2 (08:32→21:34)
--- NOTE | 2020-05-10 09:08 | RAD ---
RADIOGRAPH CHEST 1 VIEW: DATE: 05/10/2020 TIME: 12 7:00 AM HISTORY: 84-year-old COVID 19 positive male in respiratory distress COMPARISON: 05/05/2020 FINDINGS: Positioning and inspiration is such that the cardiac shadow is obscured. New left-sided PICC with distal tip overlying SVC. Mixed interstitial and alveolar infiltrates bilaterally in the mid and lower lung zones. Apices relat ively spared. Positional differences make comparison of the infiltrates difficult. No pneumothorax. IMPRESSION: Bilateral infiltrates. New left-sided peripherally inserted central catheter.
[2020-05-10] MEDS: REMDESIVIR (EUA) 100 MG in Sodium Chloride 0.9% 250 ML 230 ML IV SCH (13:02)
[2020-05-10] MEDS ORDERED: LYTES IV SCH (14:00)
[2020-05-10] MEDS ORDERED: MULTIVITAMINS IV SCH (14:00)
[2020-05-10] MEDS ORDERED: D15W AA IV SCH (14:00)
[2020-05-10] MEDS ORDERED: [UNRECOGNIZED DRUG - OTHER] IV SCH (14:00)
[2020-05-10] MEDS ORDERED: TRACE ELEMENTS IV SCH (14:00)
--- NOTE | 2020-05-10 14:19 | CON ---
DATE OF CONSULTATION: 05/10/2020 This is 35 minutes critical care time. CONSULTING PHYSICIAN: Hospitalist group-consult made by a computer, not notified by phone. HISTORY OF PRESENT ILLNESS: The patient is an 84-year-old male with COVID-19 pneumonia. He was admitted to the hospital on 05/05/[address] Cheek. He presented in the hospital that time with cough and hypoxemia. He has gradually developed worsening hypoxemia to the point where he is now on noninvasive mechanical ventilation. PAST MEDICAL HISTORY: 1. Alzheimer disease. 2. Benign prostatic hypertrophy. PAST SURGICAL HISTORY: Not known. MEDICATIONS: 1. Donepezil. 2. Namenda. 3. Flomax. ALLERGIES: NONE. SOCIAL HISTORY: Does not smoke. Does not consume alcohol. FAMILY HISTORY: Unremarkable. REVIEW OF SYSTEMS: Cannot be obtained as he is demented. PHYSICAL EXAMINATION: VITAL SIGNS: Heart rate 81, blood pressure 95/74, O2 saturation 98%, respiratory rate 31. GENERAL: The patient is confused on BiPAP, but he is not tearing off the mask. HEENT: Unremarkable. NECK: No JVD. LUNGS: Coarse rhonchi. CARDIOVASCULAR: S1, S2. Regular. ABDOMEN: Soft and nontender. EXTREMITIES: No edema. LABORATORY DATA: White blood cell count 13, hematocrit 42, and platelet count 201. PH 7.47, pCO2 of 30, pO2 of 63, on BiPAP with FiO2 of 100%. Sodium 140, potassium 3.5, chloride 115, CO2 19, BUN 23, creatinine 1.0, glucose 116. His x-ray shows diffuse bilateral infiltrates. ASSESSMENT: 1. COVID-19 pneumonia. 2. Advanced age. 3. Alzheimer disease. PLAN: The patient is currently on anticoagulation with enoxaparin. He is also being given dexamethasone. I do not see there is any way he can survive the current situation and I would be very much in favor a DNR status and not intubate patient. I will try to speak with the family. Job ID: [id number]
[2020-05-10] MEDS ORDERED: Morphine 4 MG/ML VIAL SLOW IVP PRN (16:30)
[2020-05-10] MEDS ORDERED: Lorazepam 2 MG/ML VIAL SLOW IVP PRN (16:30)
--- NOTE | 2020-05-10 17:31 | PDOC.HOSPP ---
- Subjective Encounter Date: 05/10/20 Encounter Time: 13:00 Subjective: Patient seen for follow-up regarding COVID-19 pneumonia. He is on BiPAP, not answering questions, could not complete review of systems. - Objective Vital Signs & Weight: Vital Signs (12 hours) Temp Pulse BP Pulse Ox 05/10/20 16:00 97.1 F L 05/10/20 11:40 94/58 L 05/10/20 11:24 86 05/10/20 08:00 97.1 F L 94 L 05/10/20 07:49 72 05/10/20 06:00 97.2 F L 05/10/20 05:40 94/58 L Weight Admit Weight 224 lb 1.92 oz Weight 239 lb 6.752 oz Most Recent Monitor Data Heart Rate from ECG 73 NIBP 116/67 NIBP BP-Mean 83 Respiration from ECG 30 SpO2 98 I&O: 05/09/20 05/10/20 05/11/20 06:59 06:59 06:59 Intake Total 396 Output Total 145 95 Balance 251 -95 Result Diagrams: 05/10/20 03:41 05/10/20 03:41 Additional Labs: Accuchecks 05/10/20 02:29 POC Glucose 157 H I reviewed patient's labs and MAR Hospitalist ROS - Review of Systems ROS unobtainable: due to mental status - Medication Medications: Active Medications Generic Name Dose Route Start Last Admin Trade Name Freq PRN Reason Stop Dose Admin Ascorbic Acid 1,000 mg 05/06/20 09:00 05/10/20 08:29 Ascorbic Acid 500 Mg Chewable Tablet PO Not Given DAILY DONNA Donepezil HCl 10 mg 05/06/20 21:00 05/09/20 19:48 Donepezil Hcl 10 Mg Tab PO Not Given HS DONNA Enalaprilat 1.25 mg 05/08/20 12:00 05/10/20 11:40 Enalaprilat Dihydrate 1.25 Mg/Ml Vial SLOW IVP Not Given Q6HR DONNA Enoxaparin Sodium 100 mg 05/07/20 21:00 05/10/20 08:32 Enoxaparin Sodium 100 Mg/Ml Syringe SC 100 mg 0900,2100 DONNA Administration Dexamethasone 6 mg/ Sodium 50.6 mls @ 100 mls/hr 05/06/20 09:00 05/10/20 08:32 Chloride IVPB 50.6 mls DAILY DONNA Administration Multivitamins 10 ml/ Chromium/ 2,269 mls @ 94.542 mls/hr 05/10/20 14:00 05/10/20 15:07 Copper/Manganese/Zinc 9 ml/ IV 2,269 mls Amino Acids/Electrolytes/ Fat 1400 DONNA Administration Emulsion Intravenous Memantine 10 mg 05/06/20 09:00 05/10/20 08:29 Memantine Hcl 10 Mg Tab PO Not Given BID DONNA Pantoprazole Sodium 40 mg 05/06/20 09:00 05/10/20 08:29 Pantoprazole 40 Mg Tab PO Not Given DAILY DONNA Sodium Chloride 10 ml 05/06/20 09:00 05/10/20 08:33 Flush - Normal Saline 10 Ml Syringe IVF 10 ml Q12HR DONNA Administration Tamsulosin HCl 0.4 mg 05/06/20 09:00 05/10/20 08:29 Tamsulosin Hcl 0.4 Mg Cap PO Not Given DAILY DONNA Zinc Sulfate 220 mg 05/06/20 09:00 05/10/20 08:29 Zinc Sulfate 220 Mg Cap PO Not Given DAILY [facility] Hospitalist Exam Vitals: Vital Signs (12 hours) Temp Pulse BP Pulse Ox 05/10/20 16:00 97.1 F L 05/10/20 11:40 94/58 L 05/10/20 11:24 86 05/10/20 08:00 97.1 F L 94 L 05/10/20 07:49 72 05/10/20 06:00 97.2 F L 05/10/20 05:40 94/58 L Weight Admit Weight 224 lb 1.92 oz Weight 239 lb 6.752 oz Most Recent Monitor Data Heart Rate from ECG 73 NIBP 116/67 NIBP BP-Mean 83 Respiration from ECG 30 SpO2 98 General Appearance: ill appearing ENT: normocephalic atraumatic Neck: supple Heart: RRR Respiratory: rhonchi Skin: no rashes Psychiatric: normal affect Hosp A/P - Plan - Assessment (1) Pneumonia due to COVID-19 virus Code(s): U07.1 - COVID-19; J12.82 - PNEUMONIA DUE TO CORONAVIRUS DISEASE 2019 Status: Acute (2) Acute respiratory failure with hypoxemia Code(s): J96.01 - ACUTE RESPIRATORY FAILURE WITH HYPOXIA Status: Acute (3) Alzheimer disease Code(s): G30.9 - ALZHEIMER'S DISEASE, UNSPECIFIED; F02.80 - DEMENTIA IN OTH DISEASES CLASSD ELSWHR W/O BEHAVRL DISTURB Status: Chronic - Plan Last night, patient was transferred to critical care unit for hypoxia. He has been started on BiPAP. He is also on IV steroids and remdesivir. TPN will be started today.
[2020-05-11] MEDS: Donepezil HCl 10 MG TAB PO SCH ×2 (00:24→20:14)
[2020-05-11] MEDS: Enalaprilat Dihydrate 1.25 MG/ML VIAL SLOW IVP SCH ×4 (00:25→17:37)
[2020-05-11 05:29] LABS: Phosphorus 3.8 mg/dL (2.3-4.7)
[2020-05-11 05:33] LABS: ALT (SGPT) 25 U/L (8-55); AST (SGOT) 30 U/L (5-34); Albumin 2.3 g/dL (3.4-4.8); Alkaline Phosphatase 100 U/L (40-110); Anion Gap 10 mmol/L (10-20); BUN (Urea Nitrogen) 38 mg/dL (8.4-25.7); Bilirubin, Direct 0.4 mg/dL (0.1-0.3); Bilirubin, Total 0.5 mg/dL (0.2-1.2); Calc. Creatinine Clearance 59 mL/min (70-130); Carbon Dioxide 27 mmol/L (23-31); Chloride 115 mmol/L (98-107); Glucose 165 mg/dL (83-110); Magnesium 2.3 mg/dL (1.6-2.6); Potassium 3.2 mmol/L (3.5-5.1); Protein, Total 5.2 g/dL (5.8-8.1); Sodium 149 mmol/L (136-145)
[2020-05-11 06:01] LABS: Band 6 % (5-11); Burr Cells MODERATE= 6-15 cells (100X) (0-1/hpf); Hemoglobin 11.3 g/dL (14.0-18.0); Lymphocytes 9 % (21-51); MDiff Complete? YES; Mean Corpuscular HGB CONC 33.2 g/dL (32.0-36.0); Mean Corpuscular Hemoglobin 30.6 pg (27.0-31.0); Mean Corpuscular Volume 92.2 fL (78.0-98.0); Mean Platelet Volume 8.6 fL (7.4-10.4); Monocytes 7 % (0-10); Neutrophil 78 % (42-75); Platelet Count 181 thou/uL (130-400); RBC Distribution Width 14.8 % (11.5-14.5); Red Blood Cell (RBC) Count 3.69 mill/uL (4.70-6.10)
[2020-05-11] MEDS: Zinc Sulfate 220 MG CAP PO SCH (08:08)
[2020-05-11] MEDS: Ascorbic Acid 500 mg Chewable Tablet PO SCH (08:08)
[2020-05-11] MEDS: Tamsulosin HCl 0.4 MG CAP PO SCH (08:08)
[2020-05-11] MEDS: Enoxaparin Sodium 100 MG/ML SYRINGE SC SCH ×2 (09:50→20:06)
[2020-05-11] MEDS: Dexamethasone 6 MG in Sodium Chloride 0.9% 50 ML IVPB SCH (09:50)
--- NOTE | 2020-05-11 10:36 | PRG ---
DATE OF SERVICE: 05/11/2020 SUBJECTIVE: The patient remains in the ICU on BiPAP. He actually looks fairly comfortable and is much more awake today than he was yesterday. PHYSICAL EXAMINATION: VITAL SIGNS: Temperature 97.2, pulse 77, oxygen saturation 97% on 50% oxygen on the BiPAP. Blood pressure 114/63. HEENT: Unchanged. NECK: No JVD. LUNGS: Diffuse rhonchi bilaterally. CARDIAC: S1, S2. Regular. ABDOMEN: Soft. EXTREMITIES: No edema. LABORATORY DATA: White blood cell count 15, hematocrit 34.1, and platelet count 181. Sodium 149, potassium 3.2, chloride 115, CO2 of 27, BUN 30, creatinine 1.4, glucose 165. ASSESSMENT: COVID-19 pneumonia with respiratory failure requiring mechanical ventilation. PLAN: Perhaps we could try high-flow later today. The patient has finished remdesivir. He is now DNR after I talked to the family. He is to continue on steroids and anticoagulation. His electrolytes will need to be adjusted through his TPN per primary team. Job ID: [id number]
--- NOTE | 2020-05-11 11:47 | PDOC.HOSPP ---
- Subjective Encounter Date: 05/11/20 Subjective: The patient is confused. Tolerating BiPAP. - Objective Vital Signs & Weight: Vital Signs (12 hours) Temp Pulse BP Pulse Ox 05/11/20 11:07 72 05/11/20 09:00 96.9 F L 05/11/20 08:41 73 05/11/20 08:00 98 05/11/20 07:03 127/66 05/11/20 07:00 97.2 F L 05/11/20 02:46 76 97 05/11/20 00:25 94/58 L 05/11/20 00:00 97.1 F L Weight Admit Weight 224 lb 1.92 oz Weight 239 lb 6.752 oz Most Recent Monitor Data Heart Rate from ECG 75 NIBP 125/72 NIBP BP-Mean 89 Respiration from ECG 30 SpO2 97 I&O: 05/10/20 05/11/20 05/12/20 06:59 06:59 06:59 Intake Total 396 2043 Output Total 145 585 135 Balance 251 1458 -135 Result Diagrams: 05/11/20 04:30 05/11/20 04:30 Additional Labs: Accuchecks 05/11/20 05/10/20 04:33 21:39 POC Glucose 117 H 136 H Hospitalist ROS - Medication Medications: Active Medications Generic Name Dose Route Start Last Admin Trade Name Zulma PRN Reason Stop Dose Admin Ascorbic Acid 1,000 mg 05/06/20 09:00 05/11/20 08:08 Ascorbic Acid 500 Mg Chewable Tablet PO Not Given DAILY DONNA Donepezil HCl 10 mg 05/06/20 21:00 05/11/20 00:24 Donepezil Hcl 10 Mg Tab PO Not Given HS DONNA Enalaprilat 1.25 mg 05/08/20 12:00 05/11/20 07:03 Enalaprilat Dihydrate 1.25 Mg/Ml Vial SLOW IVP Not Given Q6HR DONNA Enoxaparin Sodium 100 mg 05/07/20 21:00 05/11/20 09:50 Enoxaparin Sodium 100 Mg/Ml Syringe SC 100 mg 0900,2100 DONNA Administration Dexamethasone 6 mg/ Sodium 50.6 mls @ 100 mls/hr 05/06/20 09:00 05/11/20 09 :50 Chloride IVPB 50.6 mls DAILY DONNA Administration Memantine 10 mg 05/06/20 09:00 05/11/20 08:08 Memantine Hcl 10 Mg Tab PO Not Given BID DONNA Morphine Sulfate 4 mg 05/10/20 16:30 05/10/20 17:35 Morphine 4 Mg/Ml Vial SLOW IVP 4 mg Q1H PRN Administration dyspnea Pantoprazole Sodium 40 mg 05/06/20 09:00 05/11/20 08:08 Pantoprazole 40 Mg Tab PO Not Given DAILY DONNA Sodium Chloride 10 ml 05/06/20 09:00 05/11/20 09:51 Flush - Normal Saline 10 Ml Syringe IVF 10 ml Q12HR DONNA Administration Tamsulosin HCl 0.4 mg 05/06/20 09:00 05/11/20 08:08 Tamsulosin Hcl 0.4 Mg Cap PO Not Given DAILY DONNA Zinc Sulfate 220 mg 05/06/20 09:00 05/11/20 08:08 Zinc Sulfate 220 Mg Cap PO Not Given DAILY [facility] Hospitalist Exam Vitals: Vital Signs (12 hours) Temp Pulse BP Pulse Ox 05/11/20 11:07 72 05/11/20 09:00 96.9 F L 05/11/20 08:41 73 05/11/20 08:00 98 05/11/20 07:03 127/66 05/11/20 07:00 97.2 F L 05/11/20 02:46 76 97 05/11/20 00:25 94/58 L 05/11/20 00:00 97.1 F L Weight Admit Weight 224 lb 1.92 oz Weight 239 lb 6.752 oz Most Recent Monitor Data Heart Rate from ECG 75 NIBP 125/72 NIBP BP-Mean 89 Respiration from ECG 30 SpO2 97 General Appearance: awake alert ENT: normocephalic atraumatic Neck: supple Heart: RRR Respiratory: normal chest expansion, no tachypnea Extremities: no cyanosis, no clubbing Hosp A/P (1) Acute respiratory failure with hypoxemia Code(s): J96.01 - ACUTE RESPIRATORY FAILURE WITH HYPOXIA Status: Acute (2) Pneumonia due to COVID-19 virus Code(s): U07.1 - COVID-19; J12.82 - PNEUMONIA DUE TO CORONAVIRUS DISEASE 2019 Status: Acute (3) Alzheimer disease Code(s): G30.9 - ALZHEIMER'S DISEASE, UNSPECIFIED; F02.80 - DEMENTIA IN OTH DISEASES CLASSD ELSWHR W/O BEHAVRL DISTURB Status: Chronic - Plan Continue BiPAP and wean off to high flow nasal cannula if tolerated. Patient is on dexamethasone, antibiotics, and anticoagulation.
[2020-05-11] MEDS ORDERED: TRACE ELEMENTS IV SCH (14:00)
[2020-05-11] MEDS ORDERED: MULTIVITAMINS IV SCH (14:00)
[2020-05-11] MEDS ORDERED: [UNRECOGNIZED DRUG - OTHER] IV SCH (14:00)
[2020-05-11] MEDS ORDERED: POTASSIUM PHOSPHATE IV SCH (14:00)
[2020-05-12] MEDS: Enalaprilat Dihydrate 1.25 MG/ML VIAL SLOW IVP SCH ×4 (00:48→18:23)
[2020-05-12 05:06] LABS: Magnesium 2.2 mg/dL (1.6-2.6); Phosphorus 3.1 mg/dL (2.3-4.7)
[2020-05-12] MEDS: Enoxaparin Sodium 100 MG/ML SYRINGE SC SCH ×2 (09:03→20:23)
[2020-05-12] MEDS: Ascorbic Acid 500 mg Chewable Tablet PO SCH (09:03)
[2020-05-12] MEDS: Dexamethasone 6 MG in Sodium Chloride 0.9% 50 ML IVPB SCH (09:03)
[2020-05-12] MEDS: Zinc Sulfate 220 MG CAP PO SCH (09:04)
[2020-05-12] MEDS: Tamsulosin HCl 0.4 MG CAP PO SCH (09:04)
[2020-05-12 14:29] LABS: ALT (SGPT) 20 U/L (8-55); AST (SGOT) 31 U/L (5-34); Albumin 2.2 g/dL (3.4-4.8); Alkaline Phosphatase 95 U/L (40-110); Anion Gap 11 mmol/L (10-20); BUN (Urea Nitrogen) 36 mg/dL (8.4-25.7); Bilirubin, Total 0.6 mg/dL (0.2-1.2); Calc. Creatinine Clearance 84 mL/min (70-130); Calcium 7.3 mg/dL (7.8-10.44); Carbon Dioxide 25 mmol/L (23-31); Chloride 116 mmol/L (98-107); Globulin 3.1 g/dL (2.4-3.5); Glucose 211 mg/dL (83-110); Potassium 3.8 mmol/L (3.5-5.1); Protein, Total 5.3 g/dL (5.8-8.1); Sodium 148 mmol/L (136-145)
[2020-05-12 14:41] VITALS: BMI 31.6
[2020-05-12] MEDS: MULTIVITAMINS IV SCH (15:18)
[2020-05-12] MEDS: [UNRECOGNIZED DRUG - OTHER] IV SCH (15:18)
[2020-05-12] MEDS: MULTITRACE NEONATAL IV SCH (15:18)
--- NOTE | 2020-05-12 15:46 | PDOC.HOSPP ---
- Subjective Encounter Date: 05/12/20 Subjective: The patient is confused at baseline. He is resting comfortably on high flow nasal cannula. - Objective Vital Signs & Weight: Vital Signs (12 hours) Temp BP Pulse Ox 05/12/20 15:39 99 05/12/20 11:37 132/65 05/12/20 11:18 95 05/12/20 09:00 97.3 F L 05/12/20 08:56 97 05/12/20 08:42 94 L 05/12/20 08:00 98 05/12/20 05:14 132/65 05/12/20 04:00 97.5 F L Weight Admit Weight 224 lb 1.92 oz Weight 239 lb 6.752 oz Most Recent Monitor Data Heart Rate from ECG 75 NIBP 130/78 NIBP BP-Mean 95 Respiration from ECG 27 SpO2 99 I&O: 05/11/20 05/12/20 05/13/20 06:59 06:59 06:59 Intake Total 2043 2211 Output Total 585 1240 275 Balance 1458 971 -275 Result Diagrams: 05/11/20 04:30 05/12/20 14:00 Additional Labs: Accuchecks 05/12/20 05/11/20 00:44 17:57 POC Glucose 145 H 177 H Hospitalist ROS - Medication Medications: Active Medications Generic Name Dose Route Start Last Admin Trade Name Freq PRN Reason Stop Dose Admin Ascorbic Acid 1,000 mg 05/06/20 09:00 05/12/20 09:03 Ascorbic Acid 500 Mg Chewable Tablet PO Not Given DAILY DONNA Donepezil HCl 10 mg 05/06/20 21:00 05/11/20 20:14 Donepezil Hcl 10 Mg Tab PO 10 mg HS DONNA Administration Enalaprilat 1.25 mg 05/08/20 12:00 05/12/20 11:37 Enalaprilat Dihydrate 1.25 Mg/Ml Vial SLOW IVP Not Given Q6HR DONNA Enoxaparin Sodium 100 mg 05/07/20 21:00 05/12/20 09:03 Enoxaparin Sodium 100 Mg/Ml Syringe SC 100 mg 0900,2100 DONNA Administration Dexamethasone 6 mg/ Sodium 50.6 mls @ 100 mls/hr 05/06/20 09:00 05/12/20 09:03 Chloride IVPB 50.6 mls DAILY DONNA Administration Multivitamins 10 ml/ Chromium/ 2,280 mls @ 94.958 mls/hr 05/12/20 14:00 05/12/20 15:18 Copper/Manganese/Zinc 10 ml/ IV 2,280 mls Potassium Phosphate 30 mmol/ 1400 DONNA Administration Amino Acids/Electrolytes/ Fat Emulsion Intravenous Memantine 10 mg 05/06/20 09:00 05/12/20 09:04 Memantine Hcl 10 Mg Tab PO 10 mg BID DONNA Administration Morphine Sulfate 4 mg 05/10/20 16:30 05/10/20 17:35 Morphine 4 Mg/Ml Vial SLOW IVP 4 mg Q1H PRN Administration dyspnea Pantoprazole Sodium 40 mg 05/06/20 09:00 05/12/20 09:04 Pantoprazole 40 Mg Tab PO 40 mg DAILY DONNA Administration Sodium Chloride 10 ml 05/06/20 09:00 05/12/20 09:04 Flush - Normal Saline 10 Ml Syringe IVF 10 ml Q12HR DONNA Administration Tamsulosin HCl 0.4 mg 05/06/20 09:00 05/12/20 09:04 Tamsulosin Hcl 0.4 Mg Cap PO 0.4 mg DAILY DONNA Administration Zinc Sulfate 220 mg 05/06/20 09:00 05/12/20 09:04 Zinc Sulfate 220 Mg Cap PO Not Given DAILY [facility] Hospitalist Exam Vitals: Vital Signs (12 hours) Temp BP Pulse Ox 05/12/20 15:39 99 05/12/20 11:37 132/65 05/12/20 11:18 95 05/12/20 09:00 97.3 F L 05/12/20 08:56 97 05/12/20 08:42 94 L 05/12/20 08:00 98 05/12/20 05:14 132/65 05/12/20 04:00 97.5 F L Weight Admit Weight 224 lb 1.92 oz Weight 239 lb 6.752 oz Most Recent Monitor Data Heart Rate from ECG 75 NIBP 130/78 NIBP BP-Mean 95 Respiration from ECG 27 SpO2 99 General Appearance: awake alert Neck: supple Heart: RRR Respiratory: normal chest expansion, no tachypnea Extremities: no cyanosis, no clubbing Hosp A/P (1) Acute respiratory failure with hypoxemia Code(s): J96.01 - ACUTE RESPIRATORY FAILURE WITH HYPOXIA Status: Acute (2) Pneumonia due to COVID-19 virus Code(s): U07.1 - COVID-19; J12.82 - PNEUMONIA DUE TO CORONAVIRUS DISEASE 2019 Status: Acute (3) Alzheimer disease Code(s): G30.9 - ALZHEIMER'S DISEASE, UNSPECIFIED; F02.80 - DEMENTIA IN OTH DISEASES CLASSD ELSWHR W/O BEHAVRL DISTURB Status: Chronic - Plan The patient was weaned off to high flow nasal cannula. He does not appear to be in any respiratory distress. Continue dexamethasone, antibiotics, and anticoagulation.
--- NOTE | 2020-05-12 19:32 | PRG ---
DATE OF SERVICE: 05/12/2020 SUBJECTIVE: Brannon Dumas remains in ICU post noninvasive support. OBJECTIVE: VITAL SIGNS: Blood pressure 132/65, heart rate 71, respiratory rate is in the 30s. GENERAL: The patient is do not resuscitate patient now. LUNGS: Remarkable for equal breath sounds. HEART: Regular rhythm. ABDOMEN: Soft. Apparently, he is on TPN started by the hospitalist. He remains on high-flow nasal cannula and appears reasonably comfortable. Given his underlying dementia, I agree with do not resuscitate status and agree with no more mechanical ventilation ti include bipap. He could probably be transferred out of Critical Care Unit at some point in the near future. Job ID: [id number] MTDD
[2020-05-12] MEDS: Donepezil HCl 10 MG TAB PO SCH (20:23)
[2020-05-13] MEDS: Enalaprilat Dihydrate 1.25 MG/ML VIAL SLOW IVP SCH ×4 (00:06→17:16)
[2020-05-13 00:07] VITALS: BP 146/74
[2020-05-13 06:37] LABS: ALT (SGPT) 19 U/L (8-55); AST (SGOT) 30 U/L (5-34); Albumin 2.3 g/dL (3.4-4.8); Alkaline Phosphatase 99 U/L (40-110); Anion Gap 8 mmol/L (10-20); BUN (Urea Nitrogen) 32 mg/dL (8.4-25.7); Bilirubin, Total 0.6 mg/dL (0.2-1.2); Calc. Creatinine Clearance 96 mL/min (70-130); Calcium 7.5 mg/dL (7.8-10.44); Carbon Dioxide 27 mmol/L (23-31); Chloride 115 mmol/L (98-107); Globulin 3.1 g/dL (2.4-3.5); Glucose 222 mg/dL (83-110); Magnesium 2.2 mg/dL (1.6-2.6); Phosphorus 3.3 mg/dL (2.3-4.7); Potassium 3.4 mmol/L (3.5-5.1); Protein, Total 5.4 g/dL (5.8-8.1); Sodium 147 mmol/L (136-145)
[2020-05-13] MEDS: Dexamethasone 6 MG in Sodium Chloride 0.9% 50 ML IVPB SCH (09:47)
[2020-05-13] MEDS: Ascorbic Acid 500 mg Chewable Tablet PO SCH (09:48)
[2020-05-13] MEDS: Enoxaparin Sodium 100 MG/ML SYRINGE SC SCH (09:48)
[2020-05-13] MEDS: Zinc Sulfate 220 MG CAP PO SCH (09:49)
[2020-05-13] MEDS: Tamsulosin HCl 0.4 MG CAP PO SCH (09:49)
--- NOTE | 2020-05-13 09:56 | PRG ---
DATE OF SERVICE: 05/13/2020 SUBJECTIVE: The patient has been weaned to a nasal cannula. He is awake, does not really verbalize much. OBJECTIVE: VITAL SIGNS: His temperature is 96.4, pulse 67, blood pressure 150/87, O2 sat 93%. HEENT: Unremarkable. NECK: No JVD. LUNGS: Fairly clear. ABDOMEN: Soft. EXTREMITIES: No edema. LABORATORY DATA: Sodium 147, potassium 3.4, chloride 115, CO2 of 27, BUN 32, creatinine 0.8, and glucose 222. CBC was not done today. ASSESSMENT: 1. COVID-19 pneumonia. 2. Dementia. PLAN: The patient is stabilized. He will be transferred out to the floor. There are no plans to re-institute BiPAP or intubation. He is DNAR. We will continue with the steroids and anticoagulation. Pulmonary will be available as needed. Job ID: [id number]
[2020-05-13] MEDS: MULTIVITAMINS IV SCH (14:52)
[2020-05-13] MEDS: MULTITRACE NEONATAL IV SCH (14:52)
[2020-05-13] MEDS: [UNRECOGNIZED DRUG - OTHER] IV SCH (14:52)
--- NOTE | 2020-05-13 16:07 | PDOC.DS.DS ---
Provider Date of Admission: 05/05/20 20:27 Date of Discharge: 05/13/20 Admitting Provider: Lamont Bustamante MD Primary Care Physician: Charles Chavez MD Course Hospital Course: The patient is an 84-year-old male with past medical history of Alzheimer's dementia who was admitted to the hospital for acute hypoxic respiratory failure due to COVID-19 pneumonia. He received the standard management with supplemental oxygen, dexamethasone, and anticoagulation. He was on BiPAP at some point but was weaned off successfully to high flow nasal cannula and then to 5 L. His family decided to pursue hospice care at home. Resuscitation Status: 05/10/20 16:29 Resuscitation Status Routine Resuscitation Status: DNAR: NO Resuscitation Discussed with: Dr. Parks spoke with Nadia Dumas, daughter Lab Results: 05/11/20 04:30 05/13/20 06:00 Abnormal Lab Results - Last 48 hrs 05/12/20 14:00: Sodium 148 H, Chloride 116 H, BUN 36 H, Calcium 7.3 L, Serum Total Protein 5.3 L, Albumin 2.2 L, Albumin/Globulin Ratio 0.7 L 05/13/20 06:00: Sodium 147 H, Potassium 3.4 L, Chloride 115 H, Anion Gap 8 L, BUN 32 H, Calcium 7.5 L, Serum Total Protein 5.4 L, Albumin 2.3 L, Albumin/Globulin Ratio 0.7 L Microbiology - Entire Visit 05/05/20 16:35 Venous blood - Right Hand Blood Culture - Final NO GROWTH IN 5 DAYS 05/05/20 16:22 Venous blood - Left Hand Blood Culture - Final NO GROWTH IN 5 DAYS 05/05/20 17:55 Urine Straight Catheter Urine Culture - Final NO GROWTH AT 48 HOURS Vitals: Vital Signs (12 hours) Temp BP Pulse Ox 05/13/20 12:18 146/74 H 05/13/20 12:00 100 F H 05/13/20 10:53 89 L 05/13/20 09:00 99.1 F 05/13/20 05:43 146/74 H Weight Admit Weight 224 lb 1.92 oz Weight 231 lb 0.711 oz Most Recent Monitor Data Heart Rate from ECG 68 NIBP 172/87 NIBP BP-Mean 115 Respiration from ECG 25 SpO2 96 Physical Exam: The patient was seen and examined on the day of discharge. Problem (1) Acute respiratory failure with hypoxemia Code(s): J96.01 - ACUTE RESPIRATORY FAILURE WITH HYPOXIA Status: Acute (2) Pneumonia due to COVID-19 virus Code(s): U07.1 - COVID-19; J12.82 - PNEUMONIA DUE TO CORONAVIRUS DISEASE 2019 Status: Acute (3) Alzheimer disease Code(s): G30.9 - ALZHEIMER'S DISEASE, UNSPECIFIED; F02.80 - DEMENTIA IN OTH DISEASES CLASSD ELSWHR W/O BEHAVRL DISTURB Status: Chronic Plan Home Medications: Medication Instructions Recorded Confirmed Type Donepezil HCl 1 tab PO HS 03/09/17 05/06/20 History Memantine HCl 1 tab PO BID 03/09/17 05/06/20 History Tamsulosin HCl 0.4 mg PO DAILY 03/09/17 05/06/20 History Allergies: No Known Allergies Allergy (Verified 05/05/20 22:53) Referrals: Charles Chavez MD [Primary Care Provider] - Disposition: HOSPICE-HOME Quality CORE MEASURES:: N/A
[2020-05-13 18:55] VITALS: TEMP 99
== END 2020-05-13 20:19 | disposition hospice, home (50) | DRG 871 ==
LOC: ERS 15:47 → T4-B 20:27 → CCU 05-10
PROVIDERS: ADMIT Internal Medicine; ATTEND Internal Medicine
PROC: 5A0935A Assistance with Respiratory Ventilation, Less than 24 Consecutive Hours, High Flow/Velocity Cannula (ICD-10-PCS; 2020-05-05)
PROC: XW033E5 Introduction of Remdesivir Anti-infective into Peripheral Vein, Percutaneous Approach, New Technology Group 5 (ICD-10-PCS; principal; 2020-05-06)
PROC: 5A0935A Assistance with Respiratory Ventilation, Less than 24 Consecutive Hours, High Flow/Velocity Cannula (ICD-10-PCS; 2020-05-07)
PROC: 5A0945A Assistance with Respiratory Ventilation, 24-96 Consecutive Hours, High Flow/Velocity Cannula (ICD-10-PCS; 2020-05-08)
PROC: 02HV33Z Insertion of Infusion Device into Superior Vena Cava, Percutaneous Approach (ICD-10-PCS; 2020-05-09)
PROC: B5181ZA Fluoroscopy of Superior Vena Cava using Low Osmolar Contrast, Guidance (ICD-10-PCS; 2020-05-09)
PROC: 02HV33Z Insertion of Infusion Device into Superior Vena Cava, Percutaneous Approach (ICD-10-PCS; 2020-05-09)
PROC: 5A09357 Assistance with Respiratory Ventilation, Less than 24 Consecutive Hours, Continuous Positive Airway Pressure (ICD-10-PCS; 2020-05-10)
PROC: 5A0945A Assistance with Respiratory Ventilation, 24-96 Consecutive Hours, High Flow/Velocity Cannula (ICD-10-PCS; 2020-05-11)
DX: A41.9 Sepsis, unspecified organism (principal); U07.1 COVID-19; J12.82 Pneumonia due to coronavirus disease 2019; J96.01 Acute respiratory failure with hypoxia; E87.0 Hyperosmolality and hypernatremia; Z66 Do not resuscitate; G30.9 Alzheimer's disease, unspecified; F02.80 Dementia in other diseases classified elsewhere, unspecified severity, without behavioral disturbance, psychotic disturbance, mood disturbance, and anxiety; E87.6 Hypokalemia; I48.91 Unspecified atrial fibrillation; N40.0 Benign prostatic hyperplasia without lower urinary tract symptoms; I10 Essential (primary) hypertension
CPT/HCPCS: 0240U; 36415; 36416; 36569; 36600; 70450; 71045; 74019; 74177; 80048; 80053; 80076; 81003; 81015; 82728; 82805; 83605; 83735; 83880; 84100; 84484; 85025; 85379; 86140; 87040; 87086; 93005; 94660; 96365; 96366; 96367; 96375; C1751; J0696; J1100; J1650; J2270; J3370; J3480; J7030; J7042; J7050; Q9967